=== PATIENT | male | born 1975 | race Two or more races ===

== ENCOUNTER 2021-06-07 19:02 | Emergency (ER) | payer SELFPAY ==
[~2021-06-07] VITALS: Ht 182.9 cm; Wt 85.0 kg
--- NOTE | 2021-06-07 19:16 | PHYS DOC ---
General Adult EDM: Chief Complaint: THUMB HPI: HPI: Patient is a 46 year old tygnb-[id number]-[id number] male here with a left thumb laceration and injury, which occurred about an hour prior to arrival. He works at a grocery store, in the [employer] department. He was slicing meat and actually got his left thumb caught into the rotating slicing machine. He has a partial thumb tip avulsion/amputation, with nail and nailbed involvement. He denies numbness or tingling. He is unsure of his tetanus status. He denies any other injury or trauma. No other complaints. Review of Systems: Review of Systems: Constitutional: Denies fever or chills. [] Musculoskeletal: Left thumb laceration, pain at thumb tip Integument: Left thumb laceration/wound Neurologic: Denies focal weakness or sensory changes Heart Score: C/O Chest Pain: No Risk Factors: Risk Factors: DM, Current or recent (<one month) smoker, HTN, HLP, family history of CAD, obesity. Risk Scores: Score 0 - 3: 2.5% MACE over next 6 weeks - Discharge Home Score 4 - 6: 20.3% MACE over next 6 weeks - Admit for Clinical Observation Score 7 - 10: 72.7% MACE over next 6 weeks - Early Invasive Strategies Physical Exam: PE: Constitutional: Well developed, well nourished, no acute distress, non-toxic appearance. [] HENT: Normocephalic, atraumatic Cardiovascular: +2 radial pulse of the left upper extremity. Lungs & Thorax: Respirations are nonlabored. Skin: There is a jagged laceration of the tip of the left thumb, with partial thumb tip amputation, involvement of the nailbed and nail, most prominently affecting the lateral portion of the nail. There is extension of the laceration to the mid thumb pad. There is mild to moderate skin maceration. There is subcutaneous fat exposed. No brisk bleeding noted. Mild oozing noted. No visible foreign body seen. No bone visualized. No tendon visualized, no visualized tendon laceration noted on gross examination. Extremities: Partial fingertip amputation of the left thumb, as detailed above. Jagged laceration of the distal left thumb, as noted above. He is able to fully flex and extend at his IP joint and MCP joint of the left thumb. His two- point sensation is intact. His gross sensation appears to be intact. Neurologic: Alert and oriented X 3, normal motor function, normal sensory function, no focal deficits noted. [] Psychologic: He is pleasant and cooperative. [] EKG: EKG: [] Radiology/Procedures: Radiology/Procedures: IMAGING REPORT Signed PATIENT: CLARKE MCDUFFIE ACCOUNT: [id number] : 1975 LOCATION: ER AGE: 46 SEX: M EXAM STATUS: DEP ER ORD. PHYSICIAN: MIHIR WILLIS DO REASON: thumb laceration PROCEDURE: FINGER(S) LEFT EXAMINATION: Left hand radiograph. VIEWS: 3 views COMPARISON: None INDICATION:46 years, Male, some laceration.. FINDINGS: No acute fracture, or dislocation. Soft tissue laceration involving the distal portion of the dome. There is no apparent radio opaque soft tissue foreign bodies. IMPRESSION: Soft tissue laceration of the distal portion of the thumb with no evidence of fracture or retained radiopaque soft tissue foreign bodies. Electronically signed by: Deepika Franklin DO (06/07/2021 11:18 PM) [facility] DICTATED and SIGNED BY: DEEPIKA FRANKLIN DO DATE: 06/07/21 [id number] 0 Course & Med Decision Making: Course & Med Decision Making Pertinent Labs and Imaging studies reviewed. (See chart for details) The patient tolerated laceration repair well. Tetanus is updated. P.o. [place] was given for pain. He is given a dose of p.o. Keflex prior to discharge. I discussed the findings, differential diagnosis and plan of care with the patient. Wound care instructions are discussed. I explained that he may ultimately lose sensation of the fingertip, and it is possible that the fingertip repair may not adhere appropriately, and the tissue may not remain vitalized, thus requiring outpatient amputation. I spoke with Dr. Daniels of orthopedics, who is comfortable with the patient following up with him next week. I recommended that he call on Thursday to procure a follow-up appointment to make sure that the tissue will not require amputation or further surgical intervention. I recommend close follow-up with orthopedics as well as with a primary care physician. The patient is comfortable with this plan, he verbalizes understanding of instructions given. Katina Disclaimer: Katina Disclaimer: This electronic medical record was generated, in whole or in part, using a voice recognition dictation system. Laceration Repair Lac Repair Indication: Left thumb laceration, partial thumb tip amputation with nail bed injury Procedure: The patient was placed in the appropriate position lying on the ED gurney. Local anesthesia was achieved utilizing 1% Lidocaine, adequate anesthesia was achieved. The area was then cleaned with betadine and copiously irrigated with sterile normal saline. Sharp debridement was required. The wound was explored. No visible foreign bodies noted. No visible tendon injury or tendon laceration noted. No bone exposed. The laceration was laceration was closed utilizing 4-0 Ethilon simple interrupted sutures. A total of 13 were placed. Nailbed repair was performed, and I was able to tack down the lacerated portion of the nail. Adequate wound eversion and hemostasis was achieved. The wound area was then dressed with Vaseline gauze, Telfa, 4 x 4 dressing and Kerlix dressing. Total repaired wound length: Complex repair, with nail and nailbed repair. Total length of laceration estimated to be approximately 2 cm x 1 cm. The patient tolerated the procedure well. Complications: None. Departure Departure Impression: Primary Impression: Traumatic amputation of finger tip Qualified Codes: S68.119A - Complete traumatic metacarpophalangeal amputation of unspecified finger, initial encounter Additional Impression: Laceration of left thumb with damage to nail Qualified Codes: S61.112A - Laceration without foreign body of left thumb with damage to nail, initial encounter Disposition: 01 HOME / SELF CARE / HOMELESS Condition: STABLE Referrals: VERN DANIELS Jr. DO Patient Instructions: Fingertip Laceration, Laceration Care, Adult Additional Instructions: Take the antibiotics as directed. Use the pain medication as directed/as needed. Keep your wound clean and dry. Return to the ER immediately for any severe redness, severe swelling, yellow or green wound drainage, new injury or trauma, severe pain or any other concerns. Please follow up next week with Dr. Daniels. Scripts Cephalexin (KEFLEX) 500 Mg Capsule 1 CAP PO BID for 5 Days, #10 CAP Prov: MIHIR WILLIS DO 06/07/21 Hydrocodone Bit/Acetaminophen (HYDROCODONE-APAP 5-325 ) 1 Tab Tablet 1 TAB PO PRN Q6HRS PRN for PAIN, #20 TAB 0 Refills Prov: MIHIR WILLIS DO 06/07/21 MIHIR WILLIS DO Jun 07, 2021 19:16
[2021-06-07] MEDS ORDERED: DIPH,PERTUSS(ACELL),TET VAC/PF 0.5 ML SYRINGE. VAX IM ONE (19:45)
[2021-06-07] MEDS ORDERED: LIDOCAINE 1% Multi-Dose 20 ML VIAL. INJ ONE (19:45)
[2021-06-07] MEDS ORDERED: HYDROcodone/APAP 5/325MG 1 TAB TABLET PO ONE (19:45)
[2021-06-07] MEDS ORDERED: HYDR-2761 PO (21:48)
[2021-06-07] MEDS ORDERED: CEPH500C PO (21:48)
[2021-06-07] MEDS ORDERED: CEPHALEXIN 250 MG CAPSULE. PO ONE (22:00)
[2021-06-07 22:04] VITALS: BP 136/91
--- NOTE | 2021-06-07 23:21 | RAD ---
EXAMINATION: Left hand radiograph. VIEWS: 3 views COMPARISON: None INDICATION:46 years, Male, some laceration.. FINDINGS: No acute fracture, or dislocation. Soft tissue laceration involving the distal portion of the dome. T here is no apparent radio opaque soft tissue foreign bodies. IMPRESSION: Soft tissue laceration of the distal portion of the thumb with no evidence of fracture or retained ra diopaque soft tissue foreign bodies. Electronically signed by: Dwight Franklin DO (06/07/2021 11:18 PM) [facility]
== END 2021-06-07 22:08 | disposition home or self-care (01) ==
LOC: ER 19:02
DX: S61.112A Laceration without foreign body of left thumb with damage to nail, initial encounter (principal); S68.012A Complete traumatic metacarpophalangeal amputation of left thumb, initial encounter; W27.4XXA Contact with kitchen utensil, initial encounter; Y93.G1 Activity, food preparation and clean up; Y92.512 Supermarket, store or market as the place of occurrence of the external cause; Y99.0 Civilian activity done for income or pay
CPT/HCPCS: 11760; 13131; 73140; 90471; 90715; 99285; J3490; 99284